=== PATIENT | female | born 1970 | race African-American/Black ===

== ENCOUNTER 2019-06-20 08:00 | Emergency (ER) | payer SELFPAY ==
[~2019-06-20] VITALS: Ht 157.5 cm; Wt 73.5 kg
[2019-06-20 08:00] VITALS: BP 129/85
--- NOTE | 2019-06-20 08:32 | PHYS DOC ---
Past History Past Medical History: No Pertinent History Past Surgical History: No Surgical History Smoking: Non-smoker Alcohol Use: None Drug Use: None Adult General Chief Complaint Chief Complaint: FINGER INJURY HPI HPI Patient is a 8-year-old female complaining of right third finger and hand pain. Patient was trying to displace a spider from on top of her leg Techs gloves when she felt a pop. She is right-hand dominant. Increased pain with movement. This happened last night. Improved with ice. Touch makes the discomfort worse. No medicines have been taken for pain.[] Review of Systems Review of Systems Constitutional: Denies fever or chills [] Eyes: Denies change in visual acuity, redness, or eye pain [] HENT: Denies nasal congestion or sore throat [] Respiratory: Denies cough or shortness of breath [] Cardiovascular: No chest pain or palpitations[] GI: Denies abdominal pain, nausea, vomiting, bloody stools or diarrhea [] : Denies dysuria or hematuria [] Musculoskeletal: Denies back pain, see history of present illness[] Integument: Denies rash or skin lesions [] Neurologic: Denies headache, focal weakness or sensory changes [] Endocrine: Denies polyuria or polydipsia [] All other systems were reviewed and found to be within normal limits, except as documented in this note. Physical Exam Physical Exam Constitutional: Well developed, well nourished, no acute distress, non-toxic appearance. [] HENT: Normocephalic, atraumatic, bilateral external ears normal, oropharynx moist, no oral exudates, nose normal. [] Eyes: PERRLA, EOMI, conjunctiva normal, no discharge. [] Neck: Normal range of motion, no tenderness, supple, no stridor. [] Cardiovascular:Heart rate regular rhythm, no murmur [] Lungs & Thorax: Bilateral breath sounds clear to auscultation [] Abdomen: Bowel sounds normal, soft, no tenderness, no masses, no pulsatile masses. [] Skin: Warm, dry, no erythema, no rash. [] Back: No tenderness, no CVA tenderness. [] Extremities: Right hand has swelling around the proximal aspect of the third finger. FDS, FDP and extensor mechanisms are intact. Capillary refills less than 2 seconds. 2. discrimination is less than 5 mm. There is pain with gentle palpation over the distal metacarpal of the third finger. A joint above and a joined below were evaluated and were normal. The other 3 extremities show: No tenderness, no cyanosis, no clubbing, ROM intact, no edema. [] Neurologic: Alert and oriented X 3, normal motor function, normal sensory function, no focal deficits noted. [] Psychologic: Affect normal, judgement normal, mood normal. [] EKG EKG [] Radiology/Procedures Radiology/Procedures PROCEDURE: HAND RIGHT 3V Indication:INJURED HAND LAST NIGHT, FELT THAT HER THIRD KNUCKLE DISLOCATED TECHNIQUE: 3 views of right hand COMPARISON: None FINDINGS/ impression: No acute fracture or dislocation. Mild soft tissue swelling seen in the dorsal aspect of the hand.[] Course & Med Decision Making Course & Med Decision Making Pertinent Labs and Imaging studies reviewed. (See chart for details) ED course: Patient arrived, was placed in bed, and tolerated exam well. She was transported to and from radiology with any complications. She deferred pain medicine while in the emergency department. A volar splint was applied after the x-ray findings. Findings were discussed with patient who voiced understanding. All questions were answered. She was discharged in improved condition. She was distally neurovascularly intact after splint application. Medical decision making: There is no evidence of a fracture or dislocation at this time. She may have dislocated and reduced on her own the finger versus a sprain. There is no evidence of neurologic, vascular, ligamentous, nor tendinous injury.[] Dragon Disclaimer Dragon Disclaimer This electronic medical record was generated, in whole or in part, using a voice recognition dictation system. Departure Departure: Impression: Primary Impression: Right hand pain Disposition: 01 HOME, SELF-CARE Condition: IMPROVED Referrals: MAL MANTILLA MD (PCP) Follow-up in 2 days Patient Instructions: Cast or Splint Care Additional Instructions: Keep the splint clean and dry. Follow-up with your regular doctor in 2 days. Return to the ER if worsening pain, weakness, numbness, or any other concerns. Scripts Meloxicam (MELOXICAM) 7.5 Mg Tablet 7.5 MG PO DAILY for PAIN, #20 TAB Prov: HARITHA MICHAELS DO 06/20/19 HARITHA MICHAELS DO Jun 20, 2019 08:32
--- NOTE | 2019-06-20 08:35 | RAD ---
Indication:INJURED HAND LAST NIGHT, FELT THAT HER THIRD KNUCKLE DISLOCATED TECHNIQUE: 3 views of right hand COMPARISON: None FINDINGS/ impression: No acute fracture or dislocation. Mild soft tissue swelling seen in the dorsal aspect of the hand. Electronically signed by: Cecil Castellon DO (06/20/2019 8:32 AM) [facility]
[2019-06-20] MEDS ORDERED: MELO7.5T29 PO (08:46)
== END 2019-06-20 08:58 | disposition home or self-care (01) ==
LOC: ER 08:00 → EDBD 08:00 → ER 08:58
DX: M79.641 Pain in right hand (principal); M79.644 Pain in right finger(s); X50.9XXA Other and unspecified overexertion or strenuous movements or postures, initial encounter; Y93.89 Activity, other specified; Y92.89 Other specified places as the place of occurrence of the external cause; Y99.8 Other external cause status
CPT/HCPCS: 29125; 73130; 99284